=== PATIENT | male | born 1990 | race Two or more races ===

== ENCOUNTER 2023-11-24 08:24 | Emergency (ER) | payer MEDICAID ==
[~2023-11-24] VITALS: Ht 175.3 cm; Wt 97.0 kg
[2023-11-24 08:29] VITALS: BP 143/79; PULSE 63; RESP 18; TEMP 98
[2023-11-24] MEDS: KETOROLAC TROMETHAMINE 60 MG/2 ML VIAL IM ONE (09:01)
[2023-11-24] MEDS: METHOCARBAMOL 500 MG TABLET PO ONE (09:01)
[2023-11-24 09:48] LABS: APPEARANCE,URINE HAZY (CLEAR); BILIRUBIN,URINE NEGATIVE (NEGATIVE); COLOR,URINE YELLOW (YELLOW); GLUCOSE, URINE (UA) NEGATIVE (NEGATIVE); KETONES,URINE NEGATIVE (NEGATIVE); LEUKOCYTE ESTERASE ,URINE NEGATIVE (NEGATIVE); NITRATE,URINE NEGATIVE (NEGATIVE); OCCULT BLOOD,URINE NEGATIVE (NEGATIVE); PROTEIN,URINE 30-70 mg/dL (NEGATIVE); SPECIFIC GRAVITIY, URINE 1.025 (1.003-1.030); UROBILINOGEN,URINE <=1.0 mg/dL (<=1.0)
[2023-11-24 09:49] LABS: BACTERIA,URINE None Seen /HPF (None Seen); RBC,URINE None Seen /HPF (0-2); WBC,URINE None Seen /HPF (0-5)
[2023-11-24] MEDS ORDERED: PERCT PO (10:32)
[2023-11-24] MEDS ORDERED: IBUP-1492 PO (10:32)
[2023-11-24] MEDS ORDERED: METH-659 PO (10:32)
[2023-11-24] MEDS: OxyCODONE HCL/ACETAMINOPHEN 5-325 MG TABLET PO ONE (10:47)
== END 2023-11-24 10:59 | disposition home or self-care (01) ==
LOC: EMS 08:28
DX: R10.84 Generalized abdominal pain (principal); F17.210 Nicotine dependence, cigarettes, uncomplicated; F12.90 Cannabis use, unspecified, uncomplicated; F10.90 Alcohol use, unspecified, uncomplicated; Y90.9 Presence of alcohol in blood, level not specified
CPT/HCPCS: 99283; 81001; 96372; J1885